=== PATIENT | female | born 1970 | race African-American/Black ===

== ENCOUNTER 2021-12-03 07:24 | Day surgery (SDC) | payer MEDICAID ==
[~2021-12-03] VITALS: Ht 170.2 cm; Wt 114.1 kg
[2021-12-03] MEDS ORDERED: GLUCOTROL XL10 MG PO (07:44)
[2021-12-03] MEDS ORDERED: HYZAAR 50-12.1 UDTAB PO (07:44)
[2021-12-03] MEDS ORDERED: ZOLOFT 100MG100 MG PO (07:44)
[2021-12-03] MEDS ORDERED: PRIL40 PO (07:45)
[2021-12-03] MEDS ORDERED: ABILIFY5 MG PO (07:45)
[2021-12-03] MEDS ORDERED: ACTOS 45MG45 MG/TAB PO (07:45)
[2021-12-03] MEDS ORDERED: FLEXERIL 1010 MG/TAB PO (07:46)
[2021-12-03] MEDS ORDERED: LANTUS SOLOS100 U/ML SQ (07:46)
[2021-12-03] MEDS ORDERED: NEURONTIN300 MG/CAP PO (07:46)
[2021-12-03 07:47] VITALS: BP 137/89; PULSE 72; TEMP 97.3
[2021-12-03 09:35] VITALS: BP 143/94; PULSE 69; TEMP 96.5
--- NOTE | 2021-12-03 09:35 | NUR ---
Patient arrives to [facility] via cart, accompanied by [facility] RN Dai. She is alert and oriented. She ambulates with standby assist to the chair in her room. Monitoring is applied -VSS and WNL on room air. Her is at the bedside. She denies any pain or nausea. She is offered and receives a muffin and coffee. PIV to TKO. Dr. Feliz comes to the bedside to speak with them.
[2021-12-03 09:50] VITALS: BP 145/88; PULSE 68
--- NOTE | 2021-12-03 09:52 | NUR ---
Patient has ate/drank. Tolerating PO well. VSS on room air.
[2021-12-03 10:05] VITALS: BP 140/90; PULSE 66
--- NOTE | 2021-12-03 10:10 | NUR ---
Patient has met discharge criteria. Discharge instructions are discussed. She denies any questions and verbalizes understanding. PIV is removed with catheter intact and hemostasis achieved. She changes to her clothing independently. She is escorted to the exit via wheelchair by staff. She is discharged to the care of her , who drives her home in a private vehicle at 1010.
== END 2021-12-03 10:10 | disposition home or self-care (01) ==
LOC: SDCO 07:24
DX: R10.9 Unspecified abdominal pain (principal); K64.1 Second degree hemorrhoids; K76.0 Fatty (change of) liver, not elsewhere classified; K85.90 Acute pancreatitis without necrosis or infection, unspecified; K59.00 Constipation, unspecified; K51.919 Ulcerative colitis, unspecified with unspecified complications; E11.42 Type 2 diabetes mellitus with diabetic polyneuropathy; M48.00 Spinal stenosis, site unspecified; Z86.010 Personal history of colon polyps; Z90.49 Acquired absence of other specified parts of digestive tract; Z79.84 Long term (current) use of oral hypoglycemic drugs; Z79.4 Long term (current) use of insulin
CPT/HCPCS: J2704; J7120